=== PATIENT | male | born 1970 | race Caucasian/White ===

== ENCOUNTER 2016-11-04 15:20 | Emergency (ER) | payer OTHER ==
[~2016-11-04] VITALS: Ht 185.4 cm; Wt 78.5 kg
[2016-11-04 16:38] LABS: HEMATOCRIT 45.2 % (38.0-50.0); MCH 31.4 PG (29.0-34.0); MCHC 34.1 G/DL (30.0-36.0); MCV 92.1 FL (86-99); MEAN PLAT.VOLUME 9.1 uM^3 (9.0-12.4); PLATELET COUNT 239 K/uL (156-360); RBC DIS.WIDTH-CV 11.6 % (11.8-14.6); RBC DIS.WIDTH-SD 38.5 % (39-53); RED BLOOD COUNT 4.91 M/uL (4.00-5.50); WHITE BLOOD COUNT 10.5 K/uL (4.1-10.2)
[2016-11-04 16:47] LABS: CHLORIDE 99 mEq/L (99-109); POTASSIUM 4.3 mEq/L (3.7-5.4); SODIUM 143 mEq/L (136-147)
[2016-11-04 16:49] LABS: GLUCOSE 86 mg/dL (70-99)
[2016-11-04 16:51] LABS: ANION GAP 29 MEQ/L (2-14)
[2016-11-04 16:52] LABS: SERUM ETHYL ALCOHOL 278 mg/dL
[2016-11-04 16:54] LABS: GFR ESTIMATE (CALCULATED) > 59 mL/min/; UREA NITROGEN (BUN) 11 mg/dL (9-23)
[2016-11-04 22:41] LABS: AMPHETAMINE NEGATIVE (500 ng/mL); BARBITURATES NEGATIVE (200 ng/mL); BENZODIAZEPINES NEGATIVE (150 ng/mL); COCAINE NEGATIVE (150 ng/mL); INTERNAL CONTROLS VALID? YES; METHADONE NEGATIVE (200 ng/mL); METHAMPHETAMINE NEGATIVE (500 ng/mL); OPIATES (MORPHINE) NEGATIVE (100 ng/mL); OXYCODONE NEGATIVE (100 ng/mL); PHENCYCLIDINE NEGATIVE (25 ng/mL); PROPOXYPHENE NEGATIVE (300 ng/mL); THC CANNABINOIDS NEGATIVE (50 ng/mL); TRICYCLIC ANTIDEPRESSANTS NEGATIVE (300 ng/mL)
[2016-11-05] MEDS ORDERED: LIBRIUM25 MG PO (00:24)
[2016-11-05 01:20] VITALS: BP 162/90
== END 2016-11-05 01:22 | disposition home or self-care (01) ==
LOC: EME 15:20
DX: F10.20 Alcohol dependence, uncomplicated (principal); F32.9 Major depressive disorder, single episode, unspecified; F31.81 Bipolar II disorder; I10 Essential (primary) hypertension
CPT/HCPCS: 80048; 85027; 90839; 99281; 99285; G0480; J1630; J2405; J7030